=== PATIENT | male | born 1945 | race Caucasian/White ===

== ENCOUNTER 2019-01-27 07:36 | Day surgery (SDC) | payer OTHER ==
[2019-01-27] VITALS (8 sets, daily range): BP systolic 116–129; BP diastolic 65–76
[~2019-01-27] VITALS: Ht 177.8 cm; Wt 96.2 kg
[2019-01-27] MEDS ORDERED: normal saline 1000ml 1,000 ML IV PRN (08:05)
[2019-01-27] MEDS ORDERED: HYDR-4353 PO (08:05)
[2019-01-27] MEDS ORDERED: SPIR25TA5 PO (08:05)
[2019-01-27] MEDS ORDERED: ATOR20TA66 PO (08:05)
[2019-01-27] MEDS ORDERED: ASPI-257 PO (08:05)
[2019-01-27] MEDS ORDERED: MULT-687 PO (08:05)
[2019-01-27] MEDS ORDERED: albumin 25% 100mL bottle x 1 IV PRN (08:05)
[2019-01-27] MEDS ORDERED: FOLI0.8T PO (08:05)
[2019-01-27 10:18] LABS: GLUCOSE,BODY FLUID 105 MG/DL; LDH,BODY FLUID 47 U/L
[2019-01-27 10:32] LABS: ALBUMIN,BODY FLUID < 0.6 G/DL
[2019-01-27 11:06] LABS: TOTAL PROTEIN,BODY FLUID < 2.0 G/DL
[2019-01-27 11:39] LABS: BFAPPEAR HAZY
[2019-01-27 11:40] LABS: BF MESOTHELIAL CELLS OCCASIONAL; BF RBC COUNT 250 /CU MM; BF WBC COUNT 320 /CU MM (0-1000); BFCOLOR YELLOW; BFVOLUME 60 ML; LYMPHOCYTES,BODY FLUID 79 %; MONOCYTES,BODY FLUID 10 %; NEUTROPHILS,BODY FLUID 11 %
== END 2019-01-27 10:30 | disposition home or self-care (01) ==
LOC: SSTAY O 07:36
PROVIDERS: ATTEND Radiology Vascular & Interventional Radiology
DX: K70.31 Alcoholic cirrhosis of liver with ascites (principal); E78.00 Pure hypercholesterolemia, unspecified; Z72.89 Other problems related to lifestyle; Z79.899 Other long term (current) drug therapy; Z98.890 Other specified postprocedural states; Z79.82 Long term (current) use of aspirin
CPT/HCPCS: 36415; 49083; 82042; 82945; 83615; 84157; 87070; 89051; C1729; J7030; P9047

== ENCOUNTER 2019-02-10 06:35 | Day surgery (SDC) | payer OTHER ==
[2019-02-10] VITALS (10 sets, daily range): BP systolic 105–130; BP diastolic 59–75
[~2019-02-10] VITALS: Ht 179.1 cm; Wt 93.8 kg
[~2019-02-10 06:35] MED LIST: ASPI-257 PO; ATOR20TA66 PO; FOLI0.8T PO; HYDR-4353 PO; MULT-687 PO; SPIR25TA5 PO
[2019-02-10] MEDS ORDERED: normal saline 1000ml 1,000 ML IV PRN (06:55)
[2019-02-10] MEDS: albumin 25% 100mL bottle x 1 IV PRN ×2 (08:52→09:11)
== END 2019-02-10 10:00 | disposition home or self-care (01) ==
LOC: SSTAY O 06:35
PROVIDERS: ATTEND Radiology Diagnostic Radiology
DX: K70.11 Alcoholic hepatitis with ascites (principal); K70.31 Alcoholic cirrhosis of liver with ascites; E78.00 Pure hypercholesterolemia, unspecified; M19.90 Unspecified osteoarthritis, unspecified site; Z86.73 Personal history of transient ischemic attack (TIA), and cerebral infarction without residual deficits; Z79.899 Other long term (current) drug therapy; Z98.890 Other specified postprocedural states; F17.210 Nicotine dependence, cigarettes, uncomplicated; F10.20 Alcohol dependence, uncomplicated; Z79.82 Long term (current) use of aspirin
CPT/HCPCS: 49083; C1729; J7030; P9047

== ENCOUNTER 2019-03-10 06:10 | Day surgery (SDC) | payer OTHER ==
[~2019-03-10] VITALS: Ht 177.8 cm; Wt 84.7 kg
[2019-03-10] VITALS (8 sets, daily range): BP systolic 103–118; BP diastolic 58–73
[~2019-03-10 06:10] MED LIST changes: -ASPI-257 PO; -HYDR-4353 PO
[2019-03-10] MEDS ORDERED: normal saline 1000ml 1,000 ML IV PRN (06:40)
[2019-03-10] MEDS ORDERED: SUCR1TAB34 PO (06:49)
[2019-03-10] MEDS ORDERED: FURO-150 PO (06:49)
[2019-03-10] MEDS: albumin 25% 100mL bottle x 1 IV PRN ×2 (08:28→09:26)
== END 2019-03-10 10:05 | disposition home or self-care (01) ==
LOC: SSTAY O 06:10
PROVIDERS: ATTEND Radiology Diagnostic Radiology
DX: K70.31 Alcoholic cirrhosis of liver with ascites (principal); E78.00 Pure hypercholesterolemia, unspecified; F10.20 Alcohol dependence, uncomplicated; Z79.899 Other long term (current) drug therapy; Z98.890 Other specified postprocedural states
CPT/HCPCS: 49083; C1729; J7030; P9047